=== PATIENT | male | born 1985 | race Caucasian/White ===

== ENCOUNTER 2019-03-10 15:58 | Emergency (ER) | payer SELFPAY ==
[~2019-03-10] VITALS: Ht 185.4 cm; Wt 104.5 kg
[2019-03-10 16:02] VITALS: Ht 185.4 cm; Wt 104.5 kg
[2019-03-10] MEDS ORDERED: CLEOCIN HCL300 MG PO (16:55)
[2019-03-10] MEDS ORDERED: VISTARIL25 MG PO (16:55)
[2019-03-10 17:08] VITALS: BP 130/87
== END 2019-03-10 17:08 | disposition home or self-care (01) ==
LOC: D.ER 15:58
DX: L03.116 Cellulitis of left lower limb (principal)